=== PATIENT | female | born 1995 | race Caucasian/White ===

== ENCOUNTER 2016-07-26 12:23 | Emergency (ER) | payer MEDICAID, OTHER | END 2016-07-26 15:20 | disposition home or self-care (01) | DX: N93.9 Abnormal uterine and vaginal bleeding, unspecified (principal) ==

== ENCOUNTER 2016-09-11 02:27 | Outpatient (CLI) | payer OTHER | END 2016-09-11 02:28 | disposition EMS.NT | LOC: EMS 02:27 | PROVIDERS: ATTEND Surgery | DX: M25.531 Pain in right wrist (principal) ==